=== PATIENT | female | born 1960 | race African-American/Black ===

== ENCOUNTER 2019-12-08 13:48 | Emergency (ER) | payer OTHER, SELFPAY ==
[2019-12-08 15:31] LABS: BASOPHIL % 0.4 % (0-2); PLATELET COUNT 305 x10^3mcL (130-400)
[2019-12-08 15:34] LABS: CALCIUM 9.4 mg/dL (8.5-10.1); CARBON DIOXIDE 29.6 mmol/L (21-32); CHLORIDE SERUM 101 mmol/L (98-107); GFR1 > 60 mL/min; GLUCOSE SERUM 79 mg/dL (74-106); SODIUM SERUM 139 mmol/L (136-145)
[2019-12-08 15:39] LABS: ALBUMIN 4.1 g/dL (3.4-5.0); ALKALINE PHOSPHATASE 90 U/L (46-116); ALT/SGPT 43 U/L (14-59); AST/SGOT 39 U/L (15-37); BILIRUBIN TOTAL 0.3 mg/dL (0.20-1.00); TOTAL PROTEIN, SERUM 8.7 g/dL (6.4-8.2)
[2019-12-08 18:32] VITALS: BP 133/59
[2019-12-08 18:46] LABS: microscopic required? NO
[2019-12-08 19:04] LABS: UA SPECIFIC GRAVITY >=1.030 (1.005-1.035); urine erythrocyte NEGATIVE (NEGATIVE)
== END 2019-12-08 18:48 | disposition home or self-care (01) ==
LOC: ED 13:48
PROVIDERS: Emergency Medicine
DX: R06.02 Shortness of breath (principal); R07.89 Other chest pain; Z13.9 Encounter for screening, unspecified